=== PATIENT | male | born 1955 | race Caucasian/White ===

== ENCOUNTER → 2016-11-29 | Outpatient (CLI) | payer OTHER | LOC: BMCIMAGING 09:26 | PROVIDERS: ATTEND Family Medicine | DX: M25.521 Pain in right elbow (principal); M79.89 Other specified soft tissue disorders ==

== ENCOUNTER → 2018-05-13 | Outpatient (CLI) | payer OTHER | LOC: BMCIMAGING 05-07 08:54 → FIMAGING 09:42 | PROVIDERS: ATTEND Internal Medicine | DX: R10.31 Right lower quadrant pain (principal) ==